=== PATIENT | female | born 1970 | race Caucasian/White ===

== ENCOUNTER → 2022-04-06 | Outpatient (CLI) | payer MEDICAID | END | disposition short-term general hospital (02) | LOC: EMS 07:08 | DX: R10.11 Right upper quadrant pain (principal); R11.0 Nausea; R19.7 Diarrhea, unspecified | CPT/HCPCS: A0425; A0429; A0999 ==

== ENCOUNTER 2024-01-26 12:09 | Emergency (ER) | payer MEDICAID ==
[2024-01-26] MEDS: IPRATROPIUM/ALBUTEROL 3 ML NEB INH STA (12:57)
--- NOTE | 2024-01-26 13:00 | ED Physician Documentation ---
PD HPI DYSPNEA - Stated complaint Stated Complaint: SOA,HIGH HEART RATE - Chief complaint Chief Complaint: Resp - History obtained from History obtained from: Patient - Additional information Additional information: The patient comes to the emergency department chief complaint of shortness of breath and wheezing after running out of her albuterol inhaler several days ago. She states that she has a history of COPD and does smoke cigarettes. She does not use any oxygen at home. She normally uses Her albuterol inhaler. She does not feels that she has been sick in particular lately but has felt a little bit feverish. She denies any rhinorrhea. She does have a cough and worries about pneumonia. She denies any cardiac issues. No chest pain or lower extremity edema that is new. No calf pain. PD PAST MEDICAL HISTORY - Past Medical History Respiratory: Asthma, COPD Neuro: None Endocrine/Autoimmune: Type 2 diabetes - Past Surgical History Past Surgical History: Yes General: Cholecystectomy /[employer]: Other - Present Medications Home Medications: Ambulatory Orders Medication Instructions Recorded Confirmed Albuterol Sulfate [Proair 1 - 2 puffs IH Q4HR PRN 06/10/23 06/10/23 Respiclick] Amox/Clav 875/125 [Augmentin 1 tablet PO Q12H 5 Days #10 tablet 06/10/23 875/125 Tab] Doxycycline [Vibramycin] 100 mg PO BID 5 Days #10 tablet 06/10/23 Ipratropium/Albuterol [Duoneb] 3 ml INH Q6H PRN #10 ml 06/10/23 Methadone [Methadone Hcl] 144 mg PO DAILY 06/10/23 06/10/23 Nebulizer and Compressor 1 each MC 1-2XD PRN #1 ea 06/10/23 [Compressor Nebulizer System] dexAMETHasone [Decadron] 4 mg PO 0800 4 Days #4 tablet 06/10/23 Azithromycin [Zithromax] 0 mg PO DAILY #6 tablet 01/26/24 predniSONE [Deltasone] 10 mg PO [id number] #42 tab 01/26/24 - Allergies Allergies/Adverse Reactions: Allergies Allergy/AdvReac Type Severity Reaction Status Date / Time No Known Drug Allergies Allergy Verified 01/26/24 12:19 - Social History Does the pt smoke?: Yes Smoking Status: Current every day smoker Does the pt drink ETOH?: No Does the pt have substance abuse?: No - Immunizations Immunizations are current?: No - POLST Patient has POLST: No PD ED PE NORMAL - Vitals Vital signs reviewed: Yes - General General: Alert and oriented X 3, No acute distress, Well developed/nourished - HEENT HEENT: Atraumatic, EOMI, Moist mucous membranes - Neck Neck: Supple, no meningeal sign - Cardiac Cardiac: RRR, No murmur - Respiratory Respiratory: No respiratory distress, Other (Decreased air movement bilaterally with moderate expiratory wheezes. Speaking in full sentences.) - Abdomen Abdomen: Soft, Non tender, Non distended - Derm Derm: Normal color, Warm and dry, No rash - Extremities Extremities: No deformity, No edema, No calf tenderness / cord - Neuro Neuro: Other (Alert, grossly intact.) - Psych Psych: Normal mood, Normal affect Results - Vitals Vitals: Vital Signs - 24 hr 01/26/24 01/26/24 01/26/24 12:19 12:42 13:00 Temperature 36.8 C Heart Rate 105 H 80 88 Respiratory 24 20 18 Rate Blood Pressure 168/102 H 169/90 H O2 Saturation 90 L 90 L If not protocol 2 2 : Oxygen Flow, liters/minute 01/26/24 01/26/24 01/26/24 13:19 13:30 14:00 Temperature Heart Rate 85 87 73 Respiratory 20 18 16 Rate Blood Pressure 158/88 H 175/88 H 149/69 H O2 Saturation 91 L 91 L 95 If not protocol 2 2 2 : Oxygen Flow, liters/minute Oxygen O2 Source Nasal cannula Oxygen Flow Rate 2 - Labs Labs: Laboratory Tests 01/26/24 12:41 Nasal Adenovirus (PCR) NOT DETECTED Nasal B. parapertussis DNA (PCR) NOT DETECTED Nasal Coronavir 229E PCR NOT DETECTED Nasal Coronavir HKU1 PCR NOT DETECTED Nasal Coronavir NL63 PCR NOT DETECTED Nasal Coronavir OC43 PCR NOT DETECTED Nasal Enterovir/Rhinovir PCR DETECTED A Nasal Influenza B PCR NOT DETECTED Nasal Influenza A PCR NOT DETECTED Nasal Parainfluen 1 PCR NOT DETECTED Nasal Parainfluen 2 PCR NOT DETECTED Nasal Parainfluen 3 PCR NOT DETECTED Nasal Parainfluen 4 PCR NOT DETECTED Nasal RSV (PCR) NOT DETECTED Nasal B.pertussis DNA PCR NOT DETECTED Nasal C.pneumoniae (PCR) NOT DETECTED Jose Human Metapneumo PCR NOT DETECTED Nasal M.pneumoniae (PCR) NOT DETECTED Nasal SARS-CoV-2 (PCR) NOT DETECTED - Rads (name of study) chest XR Relevant Findings:: Final report received, See rad report (Mild interstitial prominence which could represent edema versus developing pneumonia) PD Medical Decision Making - ED course Complexity details: reviewed results, re-evaluated patient, considered differential, d/w patient ED course: The patient was given a DuoNeb and a dose of IV Decadron here. Her oxygen saturation was in the upper 80s upon arrival and she stated that her baseline was around 96% on room air. She was started on supplemental oxygen 2 L which did bring her sats up to between 91 and 93%. Her chest x-ray showed possible developing pneumonia and she was given antibiotics for this. X-ray otherwise. Fairly clear though. The patient was feeling a little better after the DuoNeb and Decadron and stated she felt ready to go home. Her lungs sounded little clear. Her MR stop was between 88 and 90%. Given the patient's COPD I do suspect that she probably has baseline oxygen saturations that run a bit lower than the patient stated baseline. The patient feels well enough to go home at this point and I will discharge her with a prescription for Zithromax and for steroid taper. She has clarified to me that she already got a refill on her albuterol inhaler couple days ago. We have discussed the usual indications for return. Departure - Departure Disposition: 01 Home, Self Care Clinical Impression: COPD exacerbation, Tobacco use Pneumonia Qualifiers: Pneumonia type: due to unspecified organism Laterality: bilateral Lung location: lower lobe of lung Qualified Code(s): J18.9 - Pneumonia, unspecified organism Condition: Stable Instructions: ED Pneumonia Adult, ED COPD Flare Prescriptions: predniSONE [Deltasone] 10 mg PO [id number] #42 tab Azithromycin [Zithromax] 0 mg PO DAILY #6 tablet Comments: Your chest x-ray shows very faint evidence of pneumonia. You been started on antibiotics for this. You have also been given a dose of steroids and a nebulizer treatment. Will have you continue antibiotics at home for the next 5 days. A prescription for a steroid taper has also been sent to the [facility] pharmacy in [place]. Please pick your prescriptions up and take the next dose tomorrow morning. Forms: PCP List
--- NOTE | 2024-01-26 13:03 | XRAY Report ---
PROCEDURE: Chest 1V INDICATIONS: copd/sob/hypoxia TECHNIQUE: One view of the chest was acquired. COMPARISON: Chest x-ray 06/13/2023. FINDINGS: Surgical changes and devices: None. Lungs and pleura: Mild interstitial prominence particularly within the bases. Mediastinum: Mediastinal contours appear normal. Heart size is normal. Bones and chest wall: No suspicious bony lesions. Overlying soft tissues appear unremarkable. IMPRESSION: Mild interstitial prominence which could represent edema versus developing pneumonia. Reviewed by: Mable Tamez MD on 01/26/2024 1:02 PM PDT Approved by: Mable Tamez MD on 01/26/2024 1:02 PM PDT Station ID: [id number]
[2024-01-26] MEDS: DEXAMETHASONE 10 MG/ML VIAL IVP STA (13:11)
[2024-01-26] MEDS: cefTRIAXone 2 GM in SODIUM CHLORIDE 0.9% MINIBAG 100 ML IV STA (14:17)
[2024-01-26] MEDS: AZITHROMYCIN 250 MG TABLET PO STA (14:17)
[2024-01-26 14:49] LABS: B. PARAPERTUSSIS- RESP PCR PAN NOT DETECTED; B. PERTUSSIS- RESP PCR PANEL NOT DETECTED; C. PNEUMONIAE- RESP PCR PANEL NOT DETECTED; CORONAVIRUS 229E-RESP PCR NOT DETECTED; CORONAVIRUS HKU1-RESP PCR NOT DETECTED; CORONAVIRUS NL63-RESP PCR NOT DETECTED; CORONAVIRUS OC43-RESP PCR NOT DETECTED; HUMAN METAPNEUMOVIRUS NOT DETECTED; INFLUENZA A- RESP PCR PANEL NOT DETECTED; INFLUENZA B - RESP PCR PANEL NOT DETECTED; M. PNEUMONIAE- RESP PCR PANEL NOT DETECTED; PARAINFLUENZA VIRUS 1 NOT DETECTED; PARAINFLUENZA VIRUS 2 NOT DETECTED; PARAINFLUENZA VIRUS 3 NOT DETECTED; PARAINFLUENZA VIRUS 4 NOT DETECTED; RHINOVIRUS/ENTEROVIRUS DETECTED; RSV- RESP PCR PANEL NOT DETECTED; SARS-CoV-2 -RESP PCR PANEL NOT DETECTED
[2024-01-26 15:12] VITALS: BP 182/104; O2SAT 91
== END 2024-01-26 15:03 | disposition home or self-care (01) ==
LOC: ED 12:09
DX: J44.1 Chronic obstructive pulmonary disease with (acute) exacerbation (principal); J18.9 Pneumonia, unspecified organism; E11.9 Type 2 diabetes mellitus without complications; F17.210 Nicotine dependence, cigarettes, uncomplicated
CPT/HCPCS: 36415; 71045; 87633; 94640; 94664; 96365; 96375; 99284; A9270